=== PATIENT | male | born 1970 | race Caucasian/White ===

== ENCOUNTER 2017-03-20 20:50 | Inpatient (IN) | payer OTHER ==
[~2017-03-20 20:50] MED LIST: THIAMINE 100 MG TAB PO SCH
[2017-03-20] MEDS ORDERED: LORazepam 2 MG/ML SYRINGE IV STA (21:10)
[2017-03-20] MEDS ORDERED: SODIUM CHLORIDE 0.9% 2,000 ML IV ONE (21:10)
--- NOTE | 2017-03-20 21:14 | ED ---
General Adult HPI - General Chief complaint: Chest Pain Stated complaint: chest pain Time Seen by Provider: 03/20/17 21:02 Source: patient, EMS, RN notes reviewed Mode of arrival: EMS - History of Present Illness Initial comments: 46-year-old male presents for evaluation of chest pain and shortness of breath. Patient has had shortness of breath difficulty breathing throughout the day today. He also reports some right sided back pain. Patient has past medical history of hypertension, significant anxiety preventing him from leaving the most days, and alcohol abuse. He does report that over the past 3 nights he has had one fifth of alcohol each night. Patient believes that much of his symptoms are related to anxiety. Chest pain did not develop until while he was in the ambulance en route to the hospital. This was sharp in nature, lasting only seconds, she was nonradiating. There is no nausea or vomiting. He denies abdominal pain. Denies any shooting pain into his lower howard region. Back pain is nontraumatic, slowly worsening over the past several days. No specific injury noted. No fever or chills. Patient is tremulous. Heart rate and blood pressure elevated on initial evaluation. - Related Data Home Medications Medication Instructions Recorded Confirmed Atenolol 25 mg PO DAILY 03/20/17 03/20/17 Esomeprazole Magnesium [NexIUM] 20 mg PO DAILY 03/20/17 03/20/17 Allergies Allergy/AdvReac Type Severity Reaction Status Date / Time No Known Allergies Allergy Verified 03/20/17 21:35 Review of Systems ROS Statement: Those systems with pertinent positive or pertinent negative responses have been documented in the HPI. ROS Other: All systems not noted in ROS Statement are negative. Past Medical History Past Medical History: GERD/Reflux, Hypertension History of Any Multi-Drug Resistant Organisms: None Reported Past Surgical History: Hernia Repair Past Psychological History: Anxiety, Depression Smoking Status: Current every day smoker Past Alcohol Use History: Daily, Occasional Past Drug Use History: Marijuana General Exam General appearance: alert, in distress Head exam: Present: atraumatic, normocephalic Eye exam: Present: normal appearance, PERRL ENT exam: Present: normal exam, mucous membranes dry Neck exam: Present: normal inspection. Absent: tenderness, meningismus Respiratory exam: Present: normal lung sounds bilaterally, respiratory distress. Absent: wheezes, rales Cardiovascular Exam: Present: normal rhythm, tachycardia GI/Abdominal exam: Present: soft. Absent: distended, tenderness Extremities exam: Present: normal inspection, full ROM, normal capillary refill. Absent: pedal edema, calf tenderness Back exam: Present: normal inspection, full ROM Neurological exam: Present: alert, oriented X3, CN II-XII intact. Absent: motor sensory deficit Psychiatric exam: Present: normal affect, normal mood Skin exam: Present: warm, dry, intact. Absent: cyanosis, diaphoretic Course Vital Signs 03/20/17 03/20/17 03/20/17 20:50 21:20 21:35 Temperature 97.9 F Pulse Rate 121 H 114 H Pulse Rate [ 110 H [employer] ] Respiratory 16 20 Rate Blood Pressure 176/113 165/117 O2 Sat by Pulse 96 97 Oximetry 03/20/17 03/20/17 22:06 23:38 Temperature 98.4 F Pulse Rate 105 H 98 Pulse Rate [ [employer] ] Respiratory 18 18 Rate Blood Pressure 168/100 155/97 O2 Sat by Pulse 95 98 Oximetry - Reevaluation(s) Reevaluation #1: 03/21/17 00:04 Patient's heart rate improves with IV hydration. EKG Findings - EKG Comments: EKG Findings:: EKG shows sinus tachycardia, ventricular rate 110, WA interval 144, QRS duration 489, no ST segment elevation or depression Medical Decision Making - Medical Decision Making 46-year-old male presenting with shortness of breath and sharp anterior chest pain. Patient's lungs are clear, he is tachycardic and mildly hypoxic. There is mild respiratory distress. Patient does appear tremulous, does admit to drinking alcohol heavily over the past 3 nights. Patient is given Ativan, IV fluids, laboratory studies reveal elevated d-dimer, CT angiography is obtained. This is positive for filling defect consistent with pulmonary embolism per patient is started on heparin. Additional lab values include magnesium of 1.1, this is replaced in the emergency department. Patient receives IV hydration, magnesium replacement, heparin drip. Chest x-ray shows no acute findings. Diagnosis: Primary embolism, hypomagnesemia, concern for alcohol withdrawal - Lab Data Result diagrams: 03/20/17 21:00 03/20/17 21:00 Lab Results 03/20/17 03/20/17 03/20/17 Range/Units 21:00 21:00 21:00 WBC 4.7 (3.8-10.6) k/uL RBC 4.97 (4.30-5.90) m/uL Hgb 18.2 H (13.0-17.5) gm/dL Hct 51.2 (39.0-53.0) % MCV 103.0 H (80.0-100.0) fL MCH 36.6 H (25.0-35.0) pg MCHC 35.6 (31.0-37.0) g/dL RDW 13.5 (11.5-15.5) % Plt Count 129 L (150-450) k/uL Neutrophils % 64 % Lymphocytes % 24 % Monocytes % 5 % Eosinophils % 4 % Basophils % 1 % Neutrophils # 3.0 (1.3-7.7) k/uL Lymphocytes # 1.2 (1.0-4.8) k/uL Monocytes # 0.2 (0-1.0) k/uL Eosinophils # 0.2 (0-0.7) k/uL Basophils # 0.0 (0-0.2) k/uL Macrocytosis Slight PT (9.0-12.0) sec INR (<1.2) APTT (22.0-30.0) sec D-Dimer (<0.60) mg/L FEU Sodium 140 (137-145) mmol/L Potassium 3.6 (3.5-5.1) mmol/L Chloride 104 (98-107) mmol/L Carbon Dioxide 19 L (22-30) mmol/L Anion Gap 17 mmol/L BUN 7 L (9-20) mg/dL Creatinine 0.80 (0.66-1.25) mg/dL Est GFR (MDRD) Af Amer >60 (>60 ml/min/1.73 sqM) Est GFR (MDRD) Non-Af >60 (>60 ml/min/1.73 sqM) Glucose 107 H (74-99) mg/dL Calcium 9.7 (8.4-10.2) mg/dL Magnesium 1.1 L (1.6-2.3) mg/dL Total Bilirubin 1.2 (0.2-1.3) mg/dL AST 79 H (17-59) U/L ALT 86 H (21-72) U/L Alkaline Phosphatase 108 (38-126) U/L Total Creatine Kinase 335 H (55-170) U/L CK-MB (CK-2) 1.5 (0.0-2.4) ng/mL CK-MB (CK-2) Rel Index 0.4 Troponin I <0.012 (0.000-0.034) ng/mL NT-Pro-B Natriuret Pep pg/mL Total Protein 8.0 (6.3-8.2) g/dL Albumin 4.5 (3.5-5.0) g/dL Lipase 179 (23-300) U/L Serum Alcohol 21 mg/dL 03/20/17 03/20/17 Range/Units 21:00 21:00 WBC (3.8-10.6) k/uL RBC (4.30-5.90) m/uL Hgb (13.0-17.5) gm/dL Hct (39.0-53.0) % MCV (80.0-100.0) fL MCH (25.0-35.0) pg MCHC (31.0-37.0) g/dL RDW (11.5-15.5) % Plt Count (150-450) k/uL Neutrophils % % Lymphocytes % % Monocytes % % Eosinophils % % Basophils % % Neutrophils # (1.3-7.7) k/uL Lymphocytes # (1.0-4.8) k/uL Monocytes # (0-1.0) k/uL Eosinophils # (0-0.7) k/uL Basophils # (0-0.2) k/uL Macrocytosis PT 12.0 (9.0-12.0) sec INR 1.2 H (<1.2) APTT 24.9 (22.0-30.0) sec D-Dimer 0.66 H (<0.60) mg/L FEU Sodium (137-145) mmol/L Potassium (3.5-5.1) mmol/L Chloride (98-107) mmol/L Carbon Dioxide (22-30) mmol/L Anion Gap mmol/L BUN (9-20) mg/dL Creatinine (0.66-1.25) mg/dL Est GFR (MDRD) Af Amer (>60 ml/min/1.73 sqM) Est GFR (MDRD) Non-Af (>60 ml/min/1.73 sqM) Glucose (74-99) mg/dL Calcium (8.4-10.2) mg/dL Magnesium (1.6-2.3) mg/dL Total Bilirubin (0.2-1.3) mg/dL AST (17-59) U/L ALT (21-72) U/L Alkaline Phosphatase (38-126) U/L Total Creatine Kinase (55-170) U/L CK-MB (CK-2) (0.0-2.4) ng/mL CK-MB (CK-2) Rel Index Troponin I (0.000-0.034) ng/mL NT-Pro-B Natriuret Pep 25 pg/mL Total Protein (6.3-8.2) g/dL Albumin (3.5-5.0) g/dL Lipase (23-300) U/L Serum Alcohol mg/dL Critical Care Time Critical Care Time: Yes Total Critical Care Time: 35 Disposition Clinical Impression: Pulmonary embolism, Hypomagnesemia, Alcohol withdrawal Disposition: ADMITTED IP TO THIS [facility] Condition: Stable Referrals: None,Stated [REFERRING] - 1-2 days Decision to Admit Reason: Admit from EC Decision Date: 03/21/17 Decision Time: 23:30
[2017-03-20] MEDS: SODIUM CHLORIDE 0.9% 1,000 ML IV SCH (21:18)
[2017-03-20 21:22] LABS: Basophils % (A) 1 %; CH 38.1; CHCM 37.1; Eosinophils # (A) 0.2 k/uL (0-0.7); Eosinophils % (A) 4 %; HCT 51.2 % (39.0-53.0); HDW 2.68; HGB 18.2 gm/dL (13.0-17.5); Luc % (Auto) 2; Lymphocytes # (A) 1.2 k/uL (1.0-4.8); Lymphocytes % (A) 24 %; MCH 36.6 pg (25.0-35.0); MCHC 35.6 g/dL (31.0-37.0); Macrocytosis Slight; Mean Platelet Volume 8.8; Monocytes # (A) 0.2 k/uL (0-1.0); Monocytes % (A) 5 %; Neutrophils % (A) 64 %; RBC 4.97 m/uL (4.30-5.90); RDW 13.5 % (11.5-15.5); WBC 4.7 k/uL (3.8-10.6)
--- NOTE | 2017-03-20 21:32 | XR ---
EXAMINATION TYPE: XR chest 2V DATE OF EXAM: 03/20/2017 COMPARISON: January 25, 2011 HISTORY: Chest pain TECHNIQUE: Frontal and lateral views of the chest are obtained. FINDINGS: There is no focal air space opacity, pleural effusion, or pneumothorax seen. The cardiac silhouette size is within normal limits. The osseous structures are intact. IMPRESSION: No acute cardiopulmonary process.
[2017-03-20 21:35] LABS: ALT 86 U/L (21-72); AST 79 U/L (17-59); Alcohol 21 mg/dL; Alkaline Phosphatase 108 U/L (38-126); Anion Gap 17 mmol/L; Blood Urea Nitrogen 7 mg/dL (9-20); Calcium 9.7 mg/dL (8.4-10.2); Carbon Dioxide 19 mmol/L (22-30); Chloride 104 mmol/L (98-107); Glucose 107 mg/dL (74-99); Magnesium 1.1 mg/dL (1.6-2.3); Non-African American GFR(MDRD) >60 (>60 ml/min/1.73 sqM); Potassium 3.6 mmol/L (3.5-5.1); Sodium 140 mmol/L (137-145); Total Bilirubin 1.2 mg/dL (0.2-1.3)
[2017-03-20 21:41] LABS: Creatine Kinase 335 U/L (55-170)
[2017-03-20] MEDS ORDERED: ASPIRIN 325 MG TAB PO STA (21:53)
[2017-03-20 21:54] LABS: Creatine Kinase MB 1.5 ng/mL (0.0-2.4); Troponin I <0.012 ng/mL (0.000-0.034)
[2017-03-20] MEDS ORDERED: LORazepam 2 MG/ML SYRINGE IV PRN ×3 (21:54)
[2017-03-20] MEDS ORDERED: THIAMINE 100 MG/ML 2 ML VIAL IM STA (21:54)
[2017-03-20 21:59] LABS: INR 1.2 (<1.2); Partial Thromboplastin Time 24.9 sec (22.0-30.0)
[2017-03-20] MEDS ORDERED: ATENOLOL 25 MG TAB PO STA (22:19)
[2017-03-20] MEDS ORDERED: RX INFO: IV CONTRAST WAS GIVEN 1 EACH MISC MISCELLANE PRN (22:24)
[2017-03-20] MEDS ORDERED: SODIUM CHLORIDE 0.9% 1,000 ML IV ONE (22:25)
[2017-03-20] MEDS: MAGNESIUM SULFATE-D5W PMX 1 GM in DEXTROSE/WATER 1 100ML.BAG IVPB SCH ×2 (22:26→23:57)
[2017-03-20] MEDS ORDERED: HEPARIN SODIUM,PORCINE 10,000 UNIT/ML 1 ML VIAL IV ONE (23:28)
[2017-03-20] MEDS ORDERED: HEPARIN SODIUM,PORCINE/D5W PMX 25,000 UNIT in DEXTROSE/WATER 1 500ML.BAG IV SCH (23:28)
[2017-03-20] MEDS ORDERED: HEPARIN SODIUM,PORCINE 5,000 UNIT/ML 1 ML VIAL IV PRN (23:28)
--- NOTE | 2017-03-20 23:30 | CT ---
EXAM: CT Angiography Chest With Intravenous Contrast CLINICAL HISTORY: Reason: Pain TECHNIQUE: Axial computed tomographic angiography images of the chest with intravenous contrast using pulmonary embolism protocol. CTDI is 83.60 mGy and DLP is 471.00 mGy-cm. This CT exam was performed using one or more of the following dose reduction techniques: automated exposure control, adjustment of the mA and/or kV according to patient size, and/or use of iterative reconstruction technique. MIP reconstructed images were created and reviewed. COMPARISON: No relevant prior studies available. FINDINGS: Pulmonary arteries: Suboptimal opacification of the pulmonary arteries is noted, which limits evaluation for pulmonary embolism. Within this limitation, there is a suspected filling defect within a subsegmental artery supplying the right upper lobe (series 4, image 56). Finding may represent a pulmonary embolism. Aorta: No acute findings. No thoracic aortic aneurysm. Lungs: Mild dependent atelectasis is seen involving both lower lobes. No mass. Pleural space: Unremarkable. No significant effusion. No pneumothorax. Heart: Mild atherosclerotic vascular calcifications are seen involving the coronary arteries. No significant pericardial effusion. No evidence of RV dysfunction. Bones/joints: No acute fracture. No dislocation. Soft tissues: Unremarkable. Lymph nodes: Unremarkable. No enlarged lymph nodes. Liver: Hepatic steatosis is suggested. IMPRESSION: Suboptimal opacification of the pulmonary arterial system. Within this limitation, there is a suspected filling defect within a subsegmental artery supplying the right upper lobe. Finding may represent a pulmonary embolism. Clinical correlation recommended. If there is further clinical concern, a short term interval follow up CTA of the chest may be obtained. Nuclear medicine VQ scan may also be obtained. [employer] 03/20/17 23:29 Call Doctor Regarding Pulmonary Embolism, called Dr. Vega on 03/20 23:29 (-04:00)
[2017-03-21] MEDS ORDERED: ACETAMINOPHEN TAB 325 MG TAB PO PRN (00:01)
[2017-03-21] MEDS ORDERED: MORPHINE SULFATE 4 MG/ML SYRINGE IV PRN (00:01)
[2017-03-21] MEDS ORDERED: ONDANSETRON 4 MG/2 ML VIAL IVP PRN (00:01)
[2017-03-21] MEDS ORDERED: NALOXONE 0.4 MG/ML 1 ML VIAL IV PRN (00:01)
[2017-03-21 00:16] LABS: Appearance,Urine Clear (Clear); Bilirubin,Urine Negative (Negative); Glucose,Urine (UA) Negative (Negative); Ketones,Urine 2+ (Negative); Leukocyte Esterase,Urine Negative (Negative); Nitrite,Urine Negative (Negative); Protein,Urine Trace (Negative); Specific Gravity,Urine 1.027 (1.001-1.035); UA Billing (MACRO vs. MICRO) CHEM; Urobilinogen,Urine <2.0 mg/dL (<2.0)
[2017-03-21 06:12] LABS: INR 1.2 (<1.2); Prothrombin Time 12.1 sec (9.0-12.0)
[2017-03-21 06:13] LABS: Basophils % (A) 0 %; CH 36.3; CHCM 35.2; Eosinophils # (A) 0.2 k/uL (0-0.7); Eosinophils % (A) 3 %; HDW 2.66; HGB 16.2 gm/dL (13.0-17.5); Luc # (Auto) 0.11; Luc % (Auto) 2; Lymphocytes # (A) 1.8 k/uL (1.0-4.8); Lymphocytes % (A) 32 %; MCH 36.6 pg (25.0-35.0); MCHC 35.2 g/dL (31.0-37.0); MCV 103.7 fL (80.0-100.0); Macrocytosis Slight; Mean Platelet Volume 8.5; Monocytes # (A) 0.3 k/uL (0-1.0); Monocytes % (A) 5 %; Neutrophils # (A) 3.3 k/uL (1.3-7.7); Neutrophils % (A) 58 %; RBC 4.44 m/uL (4.30-5.90); RDW 13.1 % (11.5-15.5); WBC 5.8 k/uL (3.8-10.6)
[2017-03-21] MEDS: SODIUM CHLORIDE 0.9% 1,000 ML IV SCH ×3 (06:28→23:13)
[2017-03-21 06:32] LABS: Partial Thromboplastin Time 126.7 sec (22.0-30.0)
[2017-03-21 09:30] LABS: ALT 65 U/L (21-72); AST 68 U/L (17-59); Alkaline Phosphatase 86 U/L (38-126); Anion Gap 7 mmol/L; Blood Urea Nitrogen 5 mg/dL (9-20); Carbon Dioxide 24 mmol/L (22-30); Chloride 108 mmol/L (98-107); Glucose 89 mg/dL (74-99); Non-African American GFR(MDRD) >60 (>60 ml/min/1.73 sqM); Potassium 3.5 mmol/L (3.5-5.1); Sodium 139 mmol/L (137-145); Total Bilirubin 1.1 mg/dL (0.2-1.3); Total Protein 6.7 g/dL (6.3-8.2)
--- NOTE | 2017-03-21 10:39 | NM ---
EXAMINATION TYPE: NM pul vent and perfuse DATE OF EXAM: 03/21/2017 COMPARISON: 03/20/2017 HISTORY: Chest pain TECHNIQUE: Utilizing inhalation of 65.6 mCi Tc 99m DTPA aerosol and intravenous injection of 5.73 mC i of Tc 99m MAA, ventilation and perfusion images are acquired post injection in multiple projections . FINDINGS: Normal radiotracer distribution is noted in the lungs. There is no evidence of mismatched defects. IMPRESSION: Low probability for pulmonary embolism based on VQ scan. Correlate with CTA report and clinically whi ch suggest upper lobe pulmonary embolism. No mismatch defects are seen.
[2017-03-21] MEDS: ATENOLOL 25 MG TAB PO SCH (10:43)
--- NOTE | 2017-03-21 11:23 | P.CRDCN ---
History of Present Illness Consult date: 03/21/17 Reason for Consult (text): Chest pain with elevated d-dimer History of present illness: 46-year-old gentleman with history of EtOH abuse presented to Hospital complaining of mild shortness of breath not feeling well and chest pain. His d- dimer was elevated underwent a computed tomography scan of the chest that was indeterminate for pulmonary embolism and went on to have a VQ scan that came back as low probability. At the time of my evaluation he appears comfortable at rest and is free of symptoms. EKG does not reveal ischemic changes first set of troponin is negative. His chest discomfort is sharp atypical nonpleuritic came on at rest without clear-cut relieving or exacerbating factors. It was mild intensity. Patient also had mild shortness of breath. There is no history of paroxysmal nocturnal dyspnea and orthopnea there is no history of leg edema. There is no history of focal neurological deficits. Review of Systems Constitutional: Denies chills. Denies fever. Eyes: Denies blurred vision. Denies pain. Ears, nose, mouth and throat: Denies headache. Denies sore throat. Cardiovascular: has chest pain. Denies shortness of breath. Respiratory: Denies cough. Gastrointestinal: Denies abdominal pain. Denies diarrhea. Denies nausea. Denies vomiting. Musculoskeletal: Denies myalgias. Integumentary: Denies pruritus. Denies rash. Neurological: Denies numbness. Denies weakness. Psychiatric: Denies anxiety. Denies depression. Endocrine: Denies fatigue. Denies weight change. Genitourinary: Denies burning, hematuria, frequency of urination. Hematological: No anemia or excess bleeding. Past Medical History Past Medical History: GERD/Reflux, Hypertension Additional Past Medical History / Comment(s): pancreatitis 5 years ago. History of Any Multi-Drug Resistant Organisms: None Reported Past Surgical History: Hernia Repair Past Anesthesia/Blood Transfusion Reactions: No Reported Reaction Past Psychological History: Anxiety, Depression Smoking Status: Current every day smoker Past Alcohol Use History: Abuse - Past Family History Father Family Medical History: Hypertension, Myocardial Infarction ([place]) Medications and Allergies Home Medications Medication Instructions Recorded Confirmed Type Atenolol 25 mg PO DAILY 03/20/17 03/20/17 History Esomeprazole Magnesium [NexIUM] 20 mg PO DAILY 03/20/17 03/20/17 History Allergies Allergy/AdvReac Type Severity Reaction Status Date / Time No Known Allergies Allergy Verified 03/20/17 21:35 Physical Exam Vitals: Vital Signs Temp Pulse Pulse Resp BP BP Pulse Ox 03/21/17 08:44 96 03/21/17 08:00 77 18 03/21/17 07:50 98.3 F 77 18 180/110 95 03/21/17 04:00 97.4 F L 98 18 164/89 97 03/21/17 03:31 157/98 03/21/17 01:44 155/102 03/21/17 01:19 166/98 03/21/17 00:50 97.4 F L 98 18 175/121 99 03/21/17 00:05 99.4 F 100 18 154/99 95 03/20/17 23:38 98 18 155/97 98 03/20/17 22:06 98.4 F 105 H 18 168/100 95 03/20/17 21:35 110 H 03/20/17 21:20 114 H 20 165/117 97 03/20/17 20:50 97.9 F 121 H 16 176/113 96 Intake and Output 03/20/17 03/21/17 03/21/17 22:59 06:59 14:59 Intake Total 1546.578 300 Output Total 500 Balance 1046.578 300 Intake: IV 1300 Heparin Sodium,Porcine/ 300 D5w Pmx 25,000 unit In Dextrose/Water 1 500ml. bag @ 18 UNITS/KG/HR 37. 55 mls/hr IV .[id number] [facility] Rx#:[id number] Magnesium Sulfate-D5w Pmx 200 1 gm In Dextrose/Water 1 100ml.bag @ 100 mls/hr IVPB Q1H [facility] Rx#: [id number] Sodium Chloride 0.9% 1, 800 000 ml @ 100 mls/hr IV . Q10H [facility] Rx#:[id number] Intake, IV Titration 246.578 0 Amount Heparin Sodium,Porcine/ 246.578 0 D5w Pmx 25,000 unit In Dextrose/Water 1 500ml. bag @ 18 UNITS/KG/HR 37. 55 mls/hr IV .[id number] [facility] Rx#:[id number] Oral 300 Output: Urine 500 Other: Voiding Method Urinal Weight 104.326 kg 108.1 kg General: The patient is awake and alert, in no distress, and does not appear acutely ill. Skin: Skin is warm and dry and no rashes or lesions are noted. Eye: Pupils are equal, round and reactive to light, extra-ocular movements are intact; there is normal conjunctiva bilaterally. Ears, nose, mouth and throat: There are moist mucous membranes and no oral lesions. Neck: The neck is supple, there is no tenderness or JVD. Cardiovascular: There is a regular rate and rhythm. No murmur, rub or gallop is appreciated. Respiratory: Lungs are clear to auscultation, respirations are non-labored, breath sounds are equal. Gastrointestinal: Soft, non-distended, non-tender abdomen without masses or organomegaly noted. There is no rebound or guarding present. Bowel sounds are unremarkable. Back: There is no tenderness to palpation in the midline. There is no obvious deformity. Musculoskeletal: Normal ROM, no tenderness, There is no pedal edema. There is no calf tenderness or swelling. Extremities: No edema. Vascular: Femoral pulse is normal. Posterior tibial pulses are normal .Dorsalis pedis is palpable. Neurological: CN II-XII intact. There are no obvious motor or sensory deficits. Speech is normal. Psychiatric: Cooperative, appropriate mood & affect, normal judgment. Results 03/21/17 05:38 03/21/17 05:30 Cardiac Enzymes 03/20/17 03/20/17 03/21/17 Range/Units 21:00 21:00 05:30 AST 79 H 68 H (17-59) U/L CK-MB (CK-2) 1.5 (0.0-2.4) ng/mL Troponin I <0.012 (0.000-0.034) ng/mL Coagulation 03/20/17 03/21/17 Range/Units 21:00 05:38 PT 12.0 12.1 H (9.0-12.0) sec APTT 24.9 126.7 H* (22.0-30.0) sec CBC 03/20/17 03/21/17 Range/Units 21:00 05:38 WBC 4.7 5.8 (3.8-10.6) k/uL RBC 4.97 4.44 (4.30-5.90) m/uL Hgb 18.2 H 16.2 (13.0-17.5) gm/dL Hct 51.2 46.0 (39.0-53.0) % Plt Count 129 L 113 L (150-450) k/uL Comprehensive Metabolic Panel 03/20/17 03/21/17 Range/Units 21:00 05:30 Sodium 140 139 (137-145) mmol/L Potassium 3.6 3.5 (3.5-5.1) mmol/L Chloride 104 108 H (98-107) mmol/L Carbon Dioxide 19 L 24 (22-30) mmol/L BUN 7 L 5 L (9-20) mg/dL Creatinine 0.80 0.77 (0.66-1.25) mg/dL Glucose 107 H 89 (74-99) mg/dL Calcium 9.7 8.0 L (8.4-10.2) mg/dL AST 79 H 68 H (17-59) U/L ALT 86 H 65 (21-72) U/L Alkaline Phosphatase 108 86 (38-126) U/L Total Protein 8.0 6.7 (6.3-8.2) g/dL Albumin 4.5 3.5 (3.5-5.0) g/dL Current Medications Generic Name Dose Route Start Last Admin Trade Name Freq PRN Reason Stop Dose Admin Acetaminophen 650 mg 03/21/17 00:01 Tylenol Tab PO Q6HR PRN Mild Pain or Fever > 100.5 Atenolol 25 mg 03/21/17 09:00 03/21/17 10:43 Tenormin PO 25 mg DAILY [facility] Administration Sodium Chloride 1,000 mls @ 100 mls/hr 03/20/17 21:15 03/21/17 06:28 Saline 0.9% IV 100 mls/hr .Q10H [facility] Administration Lorazepam 1 mg 03/20/17 21:54 03/21/17 01:05 Ativan IV 1 mg Q2HR PRN Administration CIWA 8 or 9 Lorazepam 1 mg 03/20/17 21:54 Ativan IV Q1HR PRN CIWA 10 to 15 Lorazepam 2 mg 03/20/17 21:54 Ativan IV 03/22/17 21:54 Q10M PRN CIWA 16 or higher Miscellaneous Information 1 each 03/20/17 22:24 Rx Info: Iv Contrast Was Given MISCELLANE 03/22/17 22:24 DAILY PRN Per Protocol Morphine Sulfate 4 mg 03/21/17 00:01 Morphine Sulfate (Inj) IV Q4HR PRN Severe Pain Naloxone HCl 0.2 mg 03/21/17 00:01 Narcan IV Q2M PRN Opioid Reversal Ondansetron HCl 4 mg 03/21/17 00:01 Zofran IVP Q8HR PRN Nausea And Vomiting Thiamine HCl 100 mg 03/21/17 12:00 Vitamin B-1 PO BID@1200,1700 [facility] Intake and Output 03/20/17 03/21/17 03/21/17 22:59 06:59 14:59 Intake Total 1546.578 300 Output Total 500 Balance 1046.578 300 Intake: IV 1300 Heparin Sodium,Porcine/ 300 D5w Pmx 25,000 unit In Dextrose/Water 1 500ml. bag @ 18 UNITS/KG/HR 37. 55 mls/hr IV .[id number] [facility] Rx#:[id number] Magnesium Sulfate-D5w Pmx 200 1 gm In Dextrose/Water 1 100ml.bag @ 100 mls/hr IVPB Q1H [facility] Rx#: [id number] Sodium Chloride 0.9% 1, 800 000 ml @ 100 mls/hr IV . Q10H [facility] Rx#:[id number] Intake, IV Titration 246.578 0 Amount Heparin Sodium,Porcine/ 246.578 0 D5w Pmx 25,000 unit In Dextrose/Water 1 500ml. bag @ 18 UNITS/KG/HR 37. 55 mls/hr IV .[id number] [facility] Rx#:[id number] Oral 300 Output: Urine 500 Other: Voiding Method Urinal Weight 104.326 kg 108.1 kg 03/21/17 05:38 03/21/17 05:30 EKG Interpretations (text) Normal sinus rhythm and within normal limits Assessment and Plan Plan: Chest pain Patient chest discomfort is atypical. So far the workup is benign and unremarkable. There is no pulmonary embolism. EKG is normal. I will obtain another set of troponin. If this is negative patient will undergo a dobutamine echo and discharged home if that's unremarkable. Patient has history of EtOH abuse and advised him to quit drinking.
[2017-03-21 11:36] VITALS: BMI 31.4
[2017-03-21] MEDS ORDERED: DOBUTamine DRIP for NUC MED 500 MG in DEXTROSE/WATER 1 250ML.BAG IV ONE (12:04)
[2017-03-21] MEDS: THIAMINE 100 MG TAB PO SCH ×2 (13:06→17:44)
[2017-03-21] MEDS: PANTOPRAZOLE 40 MG TABLET PO SCH (13:06)
[2017-03-21] MEDS: BUDESONIDE 1 MG/2 ML NEBU INHALATION SCH ×2 (15:07→19:39)
[2017-03-21] MEDS: IPRATROPIUM-ALBUTEROL 3 ML NEB INHALATION SCH ×4 (15:07→23:33)
--- NOTE | 2017-03-21 15:30 | P.CNPUL ---
History of Present Illness Consult date: 03/21/17 Requesting physician: Alireza Marti Reason for consult: chest pain Chief complaint: Chest pain, shortness of breath History of present illness: This is a very pleasant 46-year-old gentleman who follows with Dr. Massey is his primary care physician. He has a history of hypertension, chronic back pain , anxiety/depression, chronic and ongoing tobacco dependence, daily alcohol use , pancreatitis, history of marijuana use. He presented to the emergency room yesterday with complaints of midsternal chest pain and shortness of breath. He also had tingling and numbness of his bilateral hands. He was diaphoretic. He was tachycardic. EKG revealed normal sinus rhythm with no acute ST or T-wave abnormalities. Troponins were negative 2. Chest x-ray revealed no acute pulmonary process. A d-dimer was 0.66. CT angiogram revealed suboptimal bolus and pulmonary embolism could not be totally excluded. A heparin drip was initiated. A VQ scan was performed today which revealed low probability of pulmonary embolism. The patient denies any recent prolonged travel, no recent surgery, no history of PE/DVT, no hemoptysis, no family history of PE/DVT, no cancer. He is seen today in consultation on the selective care unit. He is currently awake and alert in no acute distress. He denies any chest pain, palpitations lightheadedness or dizziness. No shortness of breath, cough or congestion. He is maintaining good O2 saturations in the 90s on room air. He' s been hypertensive. No episodes of hypotension. Review of Systems 14 point review of system was conducted. All negative other than as mentioned in HPI. Past Medical History Past Medical History: GERD/Reflux, Hypertension Additional Past Medical History / Comment(s): pancreatitis 5 years ago. History of Any Multi-Drug Resistant Organisms: None Reported Past Surgical History: Hernia Repair Past Anesthesia/Blood Transfusion Reactions: No Reported Reaction Past Psychological History: Anxiety, Depression Smoking Status: Current every day smoker Past Alcohol Use History: Abuse - Past Family History Father Family Medical History: Hypertension, Myocardial Infarction ([place]) Medications and Allergies Home Medications Medication Instructions Recorded Confirmed Type Atenolol 25 mg PO DAILY 03/20/17 03/20/17 History Esomeprazole Magnesium [NexIUM] 20 mg PO DAILY 03/20/17 03/20/17 History Allergies Allergy/AdvReac Type Severity Reaction Status Date / Time No Known Allergies Allergy Verified 03/20/17 21:35 Physical Exam Vitals: Vital Signs Temp Pulse Pulse Resp BP BP Pulse Ox 03/21/17 12:45 74 18 175/115 93 L 03/21/17 12:00 74 18 03/21/17 08:44 96 03/21/17 08:00 77 18 03/21/17 07:50 98.3 F 77 18 180/110 95 03/21/17 04:00 97.4 F L 98 18 164/89 97 03/21/17 03:31 157/98 03/21/17 01:44 155/102 03/21/17 01:19 166/98 03/21/17 00:50 97.4 F L 98 18 175/121 99 03/21/17 00:05 99.4 F 100 18 154/99 95 03/20/17 23:38 98 18 155/97 98 03/20/17 22:06 98.4 F 105 H 18 168/100 95 03/20/17 21:35 110 H 03/20/17 21:20 114 H 20 165/117 97 03/20/17 20:50 97.9 F 121 H 16 176/113 96 Intake and Output 03/21/17 03/21/17 03/21/17 06:59 14:59 22:59 Intake Total 1546.578 540 Output Total 500 Balance 1046.578 540 Intake: IV 1300 Heparin Sodium,Porcine/ 300 D5w Pmx 25,000 unit In Dextrose/Water 1 500ml. bag @ 18 UNITS/KG/HR 37. 55 mls/hr IV .[id number] LUIS ANTONIO Rx#:[id number] Magnesium Sulfate-D5w Pmx 200 1 gm In Dextrose/Water 1 100ml.bag @ 100 mls/hr IVPB Q1H LUIS ANTONIO Rx#: [id number] Sodium Chloride 0.9% 1, 800 000 ml @ 100 mls/hr IV . Q10H LUIS ANTONIO Rx#:[id number] Intake, IV Titration 246.578 0 Amount Heparin Sodium,Porcine/ 246.578 0 D5w Pmx 25,000 unit In Dextrose/Water 1 500ml. bag @ 18 UNITS/KG/HR 37. 55 mls/hr IV .[id number] LUIS ANTONIO Rx#:[id number] Oral 540 Output: Urine 500 Other: Voiding Method Toilet # Voids 3 Weight 108.1 kg 108.1 kg Patient Weight 03/22/17 06:59 Weight 108.1 kg GENERAL EXAM: Alert, active, comfortable in no apparent distress. HEAD: Normocephalic. EYES: Normal reaction of pupils, equal size. NOSE: Clear with pink turbinates. THROAT: No erythema or exudates. NECK: No masses, no JVD. CHEST: No chest wall deformity. LUNGS: Equal air entry with no crackles, wheeze, rhonchi or dullness. CVS: S1 and S2 normal with no audible murmurs, regular rhythm. ABDOMEN: No hepatosplenomegaly, normal bowel sounds, no guarding or rigidity. SPINE: No scoliosis or deformity SKIN: No rashes CENTRAL NERVOUS SYSTEM: No focal deficits, tone is normal in all 4 extremities. Extremities: There is no significant peripheral edema. No clubbing, no cyanosis. Peripheral pulses are intact. Results - Laboratory Findings CBC and BMP: 03/21/17 05:38 03/21/17 05:30 PT/INR, D-dimer PT 12.1 sec (9.0-12.0) H 03/21/17 05:38 INR 1.2 (<1.2) H 03/21/17 05:38 D-Dimer 0.66 mg/L FEU (<0.60) H 03/20/17 21:00 Abnormal lab findings: Abnormal Labs 03/20/17 03/20/17 03/20/17 21:00 21:00 21:00 Hgb 18.2 H MCV 103.0 H MCH 36.6 H Plt Count 129 L PT INR APTT D-Dimer Chloride Carbon Dioxide 19 L BUN 7 L Glucose 107 H Calcium Magnesium 1.1 L AST 79 H ALT 86 H Total Creatine Kinase 335 H Urine Protein Urine Ketones 03/20/17 03/21/17 03/21/17 21:00 00:02 05:30 Hgb MCV MCH Plt Count PT INR 1.2 H APTT D-Dimer 0.66 H Chloride 108 H Carbon Dioxide BUN 5 L Glucose Calcium 8.0 L Magnesium AST 68 H ALT Total Creatine Kinase Urine Protein Trace H Urine Ketones 2+ H 03/21/17 03/21/17 05:38 05:38 Hgb MCV 103.7 H MCH 36.6 H Plt Count 113 L PT 12.1 H INR 1.2 H APTT 126.7 H* D-Dimer Chloride Carbon Dioxide BUN Glucose Calcium Magnesium AST ALT Total Creatine Kinase Urine Protein Urine Ketones - Diagnostic Findings Chest x-ray: image reviewed CT scan - chest: image reviewed Assessment and Plan Plan: Impression: #1 Atypical chest pain, no evidence of acute coronary syndrome, inconclusive CT angiogram for pulmonary embolism, VQ scan reveals low probability for pulmonary embolism. #2 Dyspnea of unclear etiology, less likely to pulmonary embolism, less likely angina equivalent, suspect secondary to anxiety, could be an acute exacerbation of chronic obstructive pulmonary disease in a patient with continued ongoing tobacco dependence. #3 Chronic and ongoing tobacco dependence. #4 Daily alcohol use. #5 History of marijuana use. #6 Hypertension. #7 Gastroesophageal reflux disease. #8 History of pancreatitis. #9 Anxiety/depression. #10 Chronic back pain. Plan: The patient was seen and evaluated by Dr. Vaughn. His chest x-ray, CT angiogram , VQ scan and labs were all reviewed. Doubt pulmonary embolism but his results are inconclusive we'll continue with heparin. We will recommend initiating the patient on Xarelto for approximately 3 months. We will continue his treatment for suspected chronic obstructive pulmonary disease with bronchodilators, Pulmicort inhalations, IV Solu-Medrol. The patient is educated regarding the importance of complete smoking cessation. A NicoDerm patch has been applied. He would benefit from an outpatient workup including full pulmonary function testing to evaluate the severity of his suspected COPD and make recommendations for her maintenance medications. Cardiology is following as well and there is plans for stress testing tomorrow. Time with Patient: Greater than 30
[2017-03-21] MEDS: NICOTINE 21MG/24HR PATCH TRANSDERM SCH (15:44)
[2017-03-21] MEDS: amLODIPine 5 MG TAB PO SCH (15:45)
[2017-03-21] MEDS: methylPREDNISolone SOD SUCCI 40 MG/ML 1 ML VIAL IV SCH ×2 (15:45→23:13)
--- NOTE | 2017-03-21 19:17 | HP ---
HISTORY AND PHYSICAL DATE OF ADMISSION: 03/21/2017 PRESENTING COMPLAINT: Short of breath. HISTORY OF PRESENTING COMPLAINT: This is a 46-year-old patient of Dr. Massey who is a long-standing smoker. He has a history of some anxiety, depression, hypertension, GERD. He presented with one day of increasing shortness of breath; not much wheezing, but really could not catch his breath. He was feeling a bit weak, tired. Denies any fever. No obvious cough. He came in. CT scan in the ER showed a questionable PE. Patient also had some chest pressure; hence he was admitted. He was put on IV heparin. REVIEW OF SYSTEMS: CONSTITUTIONAL: Tired. HEENT: None. RESPIRATORY: As above. CARDIOVASCULAR: As above. GASTROINTESTINAL: Heartburn. GENITOURINARY: None. MUSCULOSKELETAL: None. DERMATOLOGIC: None. HEMATOLOGIC: None. LYMPHATIC: None. PSYCHIATRY: Some anxiety. NEUROLOGIC: None. PAST HISTORY: 1. GERD. 2. Hypertension. 3. Pancreatitis. 4. Anxiety. 5. Depression. PAST SURGICAL HISTORY: Hernia repair. 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 Does marijuana occasionally. Drinks at least 2 fifths a week. Has smoked a pack a day for close to 25 years ago. . FAMILY HISTORY: 1. Hypertension. 2. Myocardial infarction. HOME MEDICATIONS: 1. Nexium 40 mg daily. 2. Atenolol 25 mg daily. ALLERGIES: NONE. PHYSICAL EXAMINATION: On examination, temperature 98.3, pulse 77, respiration 18, blood pressure 180/110, pulse ox 95% on 2 L. GENERAL APPEARANCE: Well built; BMI 31.4. Lying in bed, tired-appearing. EYES: Pupils equal. Conjunctivae normal. HEENT: Oral cavity normal. NECK: JVD not raised. Mass not palpable. RESPIRATORY: Effort increased. LUNGS: Diminished breath sounds. Prolonged expiration. Mild wheezing. CARDIOVASCULAR: First and second sounds normal. No edema. ABDOMEN: Soft, non-tender. Liver and spleen not palpable. LYMPHATIC: No lymph node palpable in neck or axillae. PSYCHIATRY: Alert and oriented x3. Mood and affect anxious-appearing. NEUROLOGICAL: Pupils equal. Cranial nerves grossly intact. Power and sensation grossly intact. INVESTIGATIONS: White count 4.7, hemoglobin 18.2, platelets 129. Pro time 12.1. Potassium 3.6. AST 79, ALT 86. Serum alcohol 21. Chest x-ray shows nil acute. Chest CTA: There is a suspected filling defect within a subsegmental artery supplying the right upper lobe. May represent a pulmonary embolism. Patient did have a V/Q scan that showed low probability for PE. ASSESSMENT: 1. Acute chronic obstructive pulmonary disease exacerbation in a smoker. 2. Accelerated hypertension. 3. Chronic nicotine dependence. Patient is a smoker. 4. Anxiety and depression not otherwise specified. 5. Gastroesophageal reflux disease. 6. Obesity; BMI 31.4. PLAN: Will start the patient on nebulized bronchodilators, nebulized steroids, IV steroids. Cardiology is ordering a stress test. Will get a pulmonary opinion about the suggested PE, though I doubt this is causing his presentation, which appears to be mainly COPD. Care was discussed with the patient and his . Questions were answered. MMGUSTABOL / IJN: [id number] /
[2017-03-21] MEDS ORDERED: IPRATROPIUM-ALBUTEROL 3 ML NEB INHALATION PRN (23:33)
[2017-03-22 06:41] LABS: Basophils % (A) 0 %; CH 36.6; CHCM 34.7; Eosinophils % (A) 0 %; HDW 2.61; HGB 17.3 gm/dL (13.0-17.5); Luc # (Auto) 0.03; Luc % (Auto) 0; Lymphocytes # (A) 0.7 k/uL (1.0-4.8); Lymphocytes % (A) 9 %; MCH 37.3 pg (25.0-35.0); MCHC 35.2 g/dL (31.0-37.0); Macrocytosis Moderate; Monocytes # (A) 0.1 k/uL (0-1.0); Monocytes % (A) 1 %; Neutrophils # (A) 7.2 k/uL (1.3-7.7); Neutrophils % (A) 89 %; RBC 4.63 m/uL (4.30-5.90); RDW 13.2 % (11.5-15.5); WBC 8.1 k/uL (3.8-10.6); WBC (Perox) 7.94
[2017-03-22] MEDS: BUDESONIDE 1 MG/2 ML NEBU INHALATION SCH (08:29)
[2017-03-22] MEDS: IPRATROPIUM-ALBUTEROL 3 ML NEB INHALATION SCH ×2 (08:29→14:04)
[2017-03-22] MEDS ORDERED: DOBUTamine DRIP for NUC MED 500 MG in DEXTROSE/WATER 1 250ML.BAG IV ONE (09:30)
[2017-03-22] MEDS: amLODIPine 5 MG TAB PO SCH (10:29)
[2017-03-22] MEDS: PANTOPRAZOLE 40 MG TABLET PO SCH (10:29)
[2017-03-22] MEDS: ATENOLOL 25 MG TAB PO SCH (10:29)
[2017-03-22] MEDS: methylPREDNISolone SOD SUCCI 40 MG/ML 1 ML VIAL IV SCH (10:29)
[2017-03-22] MEDS: THIAMINE 100 MG TAB PO SCH (10:30)
[2017-03-22] MEDS: NICOTINE 21MG/24HR PATCH TRANSDERM SCH (10:30)
--- NOTE | 2017-03-22 10:39 | P.PN ---
Subjective Principal diagnosis: chest pain this is a 46-year-old gentleman with history of EtOH abuse who presented to the hospital with symptoms of atypical chest pain and mild associated shortness of breath. Initial d-dimer came back to the abnormal, patient underwent CTA of the chest and subsequently a VQ of the chest which came back low probability for pulmonary embolism. Troponins were negative 3. EKG showed a sinus tachycardia with no acute changes. Patient underwent a dobutamine echocardiographic study today, results are yet pending. Denies any further chest discomfort. Objective - Vital Signs Vital signs: Vital Signs Temp 97.6 F 03/22/17 07:45 Pulse 78 03/22/17 08:51 Resp 16 03/22/17 08:33 BP 145/91 03/22/17 07:45 Pulse Ox 95 03/22/17 07:45 Intake & Output 03/21/17 03/22/17 03/22/17 18:59 06:59 18:59 Intake Total 540 1600 Balance 540 1600 Weight 108.1 kg 107.4 kg 107.048 kg Intake: IV 1600 Sodium Chloride 0.9% 1, 1600 000 ml @ 100 mls/hr IV . Q10H LUIS ANTONIO Rx#:[id number] Intake, IV Titration 0 Amount Heparin Sodium,Porcine/ 0 D5w Pmx 25,000 unit In Dextrose/Water 1 500ml. bag @ 18 UNITS/KG/HR 37. 55 mls/hr IV .[id number] LUIS ANTONIO Rx#:[id number] Oral 540 Other: Voiding Method Toilet Toilet Toilet # Voids 3 3 - Exam PHYSICAL EXAMINATION: HEENT: [Head is atraumatic, normocephalic. Pupils equal, round. Neck is supple. There is no elevated jugular venous pressure.] HEART EXAMINATION: [Heart S1, S2 normal. No murmur or gallop heard.] CHEST EXAMINATION:[ Lungs are clear to auscultation and precussion. No chest wall tenderness is noted on palpation or with deep breathing.] ABDOMEN: [ Soft, nontender. Bowel sounds are heard. No organomegaly noted]. EXTREMITIES:[ 2+ peripheral pulses with no evidence of peripheral edema and no calf tenderness noted]. NEUROLOGIC [patient is awake, alert and oriented -3.] . - Labs CBC & Chem 7: 03/22/17 05:56 03/21/17 05:30 Labs: Abnormal Lab Results - Last 24 Hours (Table) 03/22/17 Range/Units 05:56 MCV 106.0 H (80.0-100.0) fL MCH 37.3 H (25.0-35.0) pg Plt Count 116 L (150-450) k/uL Lymphocytes # 0.7 L (1.0-4.8) k/uL Assessment and Plan (1) Atypical chest pain Status: Acute (2) SOB (shortness of breath) Status: Acute (3) Nicotine dependence Status: Acute (4) ETOH abuse Status: Acute (5) Marijuana smoker Status: Acute (6) HTN (hypertension) Status: Acute Plan: We will review the echocardiogram with Doppler study and dobutamine echo once the results are available.if negative, patient may be able to be discharged from cardiology's perspective. DNP note has been reviewed, I agree with a documented findings and plan of care. Patient was seen and examined.
--- NOTE | 2017-03-22 11:14 | P.PN ---
Subjective Principal diagnosis: Atypical chest pain and shortness of breath This is a very pleasant 46-year-old gentleman who follows with Dr. Massey is his primary care physician. He has a history of hypertension, chronic back pain , anxiety/depression, chronic and ongoing tobacco dependence, daily alcohol use , pancreatitis, history of marijuana use. He presented to the emergency room yesterday with complaints of midsternal chest pain and shortness of breath. He also had tingling and numbness of his bilateral hands. He was diaphoretic. He was tachycardic. EKG revealed normal sinus rhythm with no acute ST or T-wave abnormalities. Troponins were negative 2. Chest x-ray revealed no acute pulmonary process. A d-dimer was 0.66. CT angiogram revealed suboptimal bolus and pulmonary embolism could not be totally excluded. A heparin drip was initiated. A VQ scan was performed today which revealed low probability of pulmonary embolism. The patient denies any recent prolonged travel, no recent surgery, no history of PE/DVT, no hemoptysis, no family history of PE/DVT, no cancer. He is seen today in consultation on the selective care unit. He is currently awake and alert in no acute distress. He denies any chest pain, palpitations lightheadedness or dizziness. No shortness of breath, cough or congestion. He is maintaining good O2 saturations in the 90s on room air. He' s been hypertensive. No episodes of hypotension. Patient was reevaluated today on 03/22/2017, doing well, asymptomatic, no shortness of breath no chest pain, patient just came back from stress test, results of which are pending. Today I discussed with the patient and his family that considering the abnormality noted on the CT of the chest, I would prefer that the patient gets anticoagulation therapy in the form of Xarelto for the next 3 months and repeat the [address] of the chest in 3 months, and decide whether to continue for a long period of time on Xarelto or stop it at the time. My clinical index of suspicion for pulmonary embolism remains low, but cannot ignore the findings noted on the CT of the chest. VQ scan was low probability for pulmonary embolism. And his d-dimer is borderline elevated. Suggest starting the patient today on Xarelto and hopefully discharge the patient home in the next 24 hours. Objective - Vital Signs Vital signs: Vital Signs Temp 97.6 F 03/22/17 07:45 Pulse 78 03/22/17 08:51 Resp 16 03/22/17 08:33 BP 145/91 03/22/17 07:45 Pulse Ox 95 03/22/17 07:45 Intake & Output 03/21/17 03/22/17 03/22/17 18:59 06:59 18:59 Intake Total 540 1600 Balance 540 1600 Weight 108.1 kg 107.4 kg 107.048 kg Intake: IV 1600 Sodium Chloride 0.9% 1, 1600 000 ml @ 100 mls/hr IV . Q10H LUIS ANTONIO Rx#:[id number] Intake, IV Titration 0 Amount Heparin Sodium,Porcine/ 0 D5w Pmx 25,000 unit In Dextrose/Water 1 500ml. bag @ 18 UNITS/KG/HR 37. 55 mls/hr IV .[id number] [facility]IS ANTONIO Rx#:[id number] Oral 540 Other: Voiding Method Toilet Toilet Toilet # Voids 3 3 - Exam GENERAL EXAM: Alert, active, comfortable in no apparent distress. HEAD: Normocephalic. EYES: Normal reaction of pupils, equal size. NOSE: Clear with pink turbinates. THROAT: No erythema or exudates. NECK: No masses, no JVD. CHEST: No chest wall deformity. LUNGS: Equal air entry with no crackles, wheeze, rhonchi or dullness. CVS: S1 and S2 normal with no audible murmurs, regular rhythm. ABDOMEN: No hepatosplenomegaly, normal bowel sounds, no guarding or rigidity. SPINE: No scoliosis or deformity SKIN: No rashes CENTRAL NERVOUS SYSTEM: No focal deficits, tone is normal in all 4 extremities. Extremities: There is no significant peripheral edema. No clubbing, no cyanosis. Peripheral pulses are intact. - Labs CBC & Chem 7: 03/22/17 05:56 03/21/17 05:30 Labs: Abnormal Lab Results - Last 24 Hours (Table) 03/22/17 Range/Units 05:56 MCV 106.0 H (80.0-100.0) fL MCH 37.3 H (25.0-35.0) pg Plt Count 116 L (150-450) k/uL Lymphocytes # 0.7 L (1.0-4.8) k/uL Assessment and Plan Plan: #1 Atypical chest pain, no evidence of acute coronary syndrome, inconclusive CT angiogram for pulmonary embolism, VQ scan reveals low probability for pulmonary embolism. However cannot ignore the fact that the patient has abnormal CT angiogram showing possibly a filling defect in one of the segmental branches of the right upper lobe. Hence I would suggest that the patient gets treated with anticoagulation therapy for the next 3 months, and repeat CT angiogram of the chest in 3 months. #2 Dyspnea of unclear etiology, pulmonary embolism is not entirely ruled out. #3 Chronic and ongoing tobacco dependence. #4 Daily alcohol use. #5 History of marijuana use. #6 Hypertension. #7 Gastroesophageal reflux disease. #8 History of pancreatitis. #9 Anxiety/depression. #10 Chronic back pain. Recommendation: Suggest treating the patient with Xarelto for the next 3 months , follow-up with me on outpatient basis, we will arrange for repeat CT angiogram of the chest, and decide at that point on the length of treatment of anticoagulation therapy. At this point I believe the benefits oriented regulation therapy outweigh the risks. Time with Patient: Less than 30
[2017-03-22 11:51] VITALS: BP 122/81; PULSE 96; RESP 18; TEMP 96.9
--- NOTE | 2017-03-22 12:10 | ECHOS ---
DATE OF SERVICE: 03/22/2017 TYPE OF REPORT: Dobutamine Stress Echocardiogram INDICATION: Chest pain. BASELINE HEART RATE: 73 BASELINE BLOOD PRESSURE: 150/90 MAXIMUM HEART RATE: 148 MAXIMUM BLOOD PRESSURE: 202/56 85% MPHR: 149 100% MPHR: 175 METS: MAX STAGE REACHED: TOTAL EXERCISE TIME: Baseline EKG revealed normal sinus rhythm without significant ST-T changes. With Dobutamine administration, the heart rate went up from 73 to 148 beats per minute, which is 85% of predicted maximum. Blood pressure changed from 150/90 to 202/56. EKG did not reveal any ST segment changes to indicate ischemia. Patient did not have any significant symptoms. By EKG criteria, this considered as a unremarkable Dobutamine stress test. Baseline echo images revealed a normal wall motion and wall thickening of all segments. At peak exercise, there was good augmentation of left ventricular wall motion and wall thickening of all segments suggesting that there is no evidence of stress induced ischemia on this study. FINAL IMPRESSION: 1. By EKG criteria, this is an unremarkable Dobutamine stress test. 2. Normal Dobutamine stress echocardiogram. VANIA
[2017-03-22] MEDS ORDERED: WARFARIN 7.5 MG TAB PO SCH (13:43)
[2017-03-22] MEDS ORDERED: ENOXAPARIN 150 MG/ML SYRINGE SQ STA (13:43)
[2017-03-22] MEDS ORDERED: RIVAROXABAN 15 MG TAB PO STA (15:09)
[2017-03-22] MEDS: SODIUM CHLORIDE 0.9% 1,000 ML IV SCH (15:30)
--- NOTE | 2017-03-22 17:32 | P.DS ---
<Alireza Marti - Last Filed: 03/23/17 13:20> Providers Date of admission: 03/21/17 00:01 Attending physician: Alireza Marti Consults: 03/21/17 08:50 Consult Physician Routine Consulting Provider: Steven Sher Consult Reason/Comments: CHEST PAIN Do you want consulting provider notified?: Already Contacted 03/21/17 13:37 Consult Physician Routine Consulting Provider: Anne Vaughn Consult Reason/Comments: questinable PE Do you want consulting provider notified?: Yes Primary care physician: Bill Johnsonm[facility] Course: Attending note. Date of service-03/22/2017 This patient was seen and examined by me . Discussed the patient with my nurse practitioner Ms. Li. Breathing a bit better. Keen to go home. Per pulmonary to be treated for PE.. On examination: Lungs-decreased breath sounds, psych AO 3 Investigations: Assessment and plan: Acute small pulmonary embolism. Acute COPD exacerbation. Patient counseled extensively about smoking and alcohol. In presence of the family. At least 5 minutes was spent on smoke cessation counseling. Discharge home on Xarelto. Stress test was negative Patient Condition at Discharge: Stable Plan - Discharge Summary New Discharge Prescriptions: New Albuterol Inhaler [Ventolin Hfa Inhaler] 1 - 2 puff INHALATION Q6HR PRN #1 inhaler PRN Reason: Wheezing amLODIPine [Norvasc] 5 mg PO DAILY #30 tab Ipratropium [place] [Atrovent Hfa] 2 puff INHALATION QID #1 inhaler Nicotine 21Mg/24Hr Patch [Habitrol] 1 patch TRANSDERM DAILY #14 patch predniSONE 0 mg PO DIRECTED #10 tab Rivaroxaban [Xarelto] 20 mg PO DAILY #30 tab Rivaroxaban [Xarelto] 15 mg PO BID #42 tab Continue Esomeprazole Magnesium [NexIUM] 20 mg PO DAILY Atenolol 25 mg PO DAILY Discharge Medication List Atenolol 25 mg PO DAILY 03/20/17 [History] Esomeprazole Magnesium [NexIUM] 20 mg PO DAILY 03/20/17 [History] Albuterol Inhaler [Ventolin Hfa Inhaler] 1 - 2 puff INHALATION Q6HR PRN #1 inhaler 03/22/17 [Rx] Ipratropium [place] [Atrovent Hfa] 2 puff INHALATION QID #1 inhaler 03/22/17 [Rx ] Nicotine 21Mg/24Hr Patch [Habitrol] 1 patch TRANSDERM DAILY #14 patch 03/22/17 [ Rx] Rivaroxaban [Xarelto] 15 mg PO BID #42 tab 03/22/17 [Rx] Rivaroxaban [Xarelto] 20 mg PO DAILY #30 tab 03/22/17 [Rx] amLODIPine [Norvasc] 5 mg PO DAILY #30 tab 03/22/17 [Rx] predniSONE 0 mg PO DIRECTED #10 tab 03/22/17 [Rx] Follow up Appointment(s)/Referral(s): Anne Vaughn MD [STAFF PHYSICIAN] - 03/28/17 8:45 am Bill Massey MD [Primary Care Provider] - 03/24/17 2:15 pm Jero King MD [STAFF PHYSICIAN] - 03/29/17 2:30 pm Ambulatory/Diagnostic Orders: Prothrombin Time INR [LAB.AMB] Time Frame: 03/27/17, Location: Determined By Patient Patient Instructions/Handouts: Pulmonary Embolism (DC), Hypomagnesemia (DC) Activity/Diet/Wound Care/Special Instructions: XARELTO TO START TOMORROW 15 MG DAILY FOR 21 DAYS THEN THE PATIENT WILL TAKE 20 MG DAILY AT BEDTIME. Discharge Disposition: HOME SELF-CARE <Rika Li - Last Filed: 03/23/17 17:14> Providers Expected date of discharge: 03/22/17 Hospital Course: FINAL DIAGNOSES: -Acute chronic obstructive pulmonary disease exacerbation in a smoker. -Acute small pulmonary embolism. -Accelerated hypertension. -Chronic alcohol use, patient admits to drinking a pint or more every time he drinks -Chronic nicotine dependence. Patient is a smoker. -Anxiety and depression not otherwise specified. -Gastroesophageal reflux disease. -Obesity, body mass index 31.4. HOSPTIAL COURSE: 46-year-old patient who presented with 1 day of increasing shortness of breath. Imaging revealed questionable PE, patient had associated chest pressure and was admitted. IV heparin initiated. Pulmonology consulted. Nebulized bronchodilators, nebulized steroids, IV steroids initiated. Cardiology consulted stress test performed and was unremarkable Pulmonology recommends patient is treated with anticoagulation therapy for the next 3 months. And a repeat CT angiogram in the next 3 months as well to follow the progress. Long discussion had with patient regarding nicotine dependence and the importance for him to quit smoking. Additionally discussion was had regarding patient's alcohol use in the long-term effects on his health for using alcohol, continued smoking and continued marijuana use. Patient verbalized understanding and discussion was had in the presence of his and his mother. Today breathing is better no further episodes of shortness of breath, no chest pains, tolerating his diet, ambulatory in the room and samuel ways. Last BM 03/22/2017. Overall condition stabilized patient would like to go home. Patient will be sent home on Xarelto 15 mg twice daily for 21 days and then Xarelto 20 mg daily at bedtime. See detailed discharge summary for follow-up appointments and laboratory work that needs to be obtained. PHYSICAL EXAM: CARDIOVASCULAR: First and second sound noted no edema RESPIRATORY: Lung sounds diminished bilaterally, effort normal GI: Abdomen soft nontender liver and spleen not palpable PSYCHIATRY: Alert and oriented 3 mood and affect somber. Patient was seen and examined by nurse practitioner Rika Li in all elements of the case discussed with attending Dr. Marti DISPOSITION: Discharge home to the care of his and family
--- NOTE | 2017-03-23 07:53 | ECHOF ---
Referral Reason:chest pain MEASUREMENTS -------- HEIGHT: 185.4 cm WEIGHT: 108.0 kg BP: 180/110 IVSd: 1.4 cm (0.6 - 1.1) LVIDd: 4.3 cm (3.9 - 5.3) LVPWd: 1.4 cm (0.6 - 1.1) IVSs: 2.0 cm LVIDs: 3.5 cm LVPWs: 1.9 cm LAESV Index (A-L): 23.51 ml/m Ao Diam: 3.9 cm (2.0 - 3.7) AV Cusp: 1.9 cm (1.5 - 2.6) LA Diam: 1.6 cm (2.7 - 3.8) MV EXCURSION: 20.130 mm (> 18.000) MV EF SLOPE: 63 mm/s (70 - 150) MV E Jorge: 0.94 m/s MV DecT: 252 ms MV A Jorge: 0.88 m/s MV E/A Ratio: 1.06 RAP: 5.00 mmHg RVSP: 14.52 mmHg FINDINGS -------- Sinus rhythm. This was a technically adequate study. The left ventricular size is normal. Overall left ventricular systolic function is normal with, an EF between 55 - 60 %. The right ventricle is normal in size. Normal LA size by volume 22+/-6 ml/m2. The right atrium is normal in size. Aortic valve is trileaflet and is mildly thickened. There is no evidence of aortic regurgitation. There is no evidence of aortic stenosis. The mitral valve leaflets are mildly thickened. There is trace mitral regurgitation. Trace tricuspid regurgitation present. There is no evidence of pulmonary hypertension. The right ventricular systolic pressure, as measured by Doppler, is 14.52mmHg. The pulmonic valve was not well visualized. The aortic root size is normal. Normal inferior vena cava with normal inspiratory collapse consistent with estimated right atrial pressure of 5 mmHg. The pericardium is normal. There is no pericardial effusion. CONCLUSIONS -------- 1. Sinus rhythm. 2. There is no evidence of pulmonary hypertension. 3. The right ventricular systolic pressure, as measured by Doppler, is 14.52mmHg. 4. The pulmonic valve was not well visualized. 5. The aortic root size is normal. 6. There is no pericardial effusion. 7. This was a technically adequate study. 8. The left ventricular size is normal. 9. Overall left ventricular systolic function is normal with, an EF between 55 - 60 %. 10. Normal LA size by volume 22+/-6 ml/m2. 11. Aortic valve is trileaflet and is mildly thickened. 12. The mitral valve leaflets are mildly thickened. 13. There is trace mitral regurgitation. 14. Trace tricuspid regurgitation present. MEDICAL RESEARCHER: Santi Matute RDCS
== END 2017-03-22 16:05 | disposition home or self-care (01) | DRG 190 ==
LOC: EC 20:50 → 6SEL 03-21 00:01
PROVIDERS: ADMIT Hospitalist; ATTEND Hospitalist
PROC: 4A02XM4 Measurement of Cardiac Total Activity, External Approach (ICD-10-PCS; principal; 2017-03-22)
PROC: 3E073KZ Introduction of Other Diagnostic Substance into Coronary Artery, Percutaneous Approach (ICD-10-PCS; 2017-03-22)
PROC: B245ZZZ Ultrasonography of Left Heart (ICD-10-PCS; 2017-03-22)
DX: J44.1 Chronic obstructive pulmonary disease with (acute) exacerbation (principal); I26.99 Other pulmonary embolism without acute cor pulmonale; I10 Essential (primary) hypertension; F32.9 Major depressive disorder, single episode, unspecified; F41.9 Anxiety disorder, unspecified; E66.9 Obesity, unspecified; K21.9 Gastro-esophageal reflux disease without esophagitis; F12.90 Cannabis use, unspecified, uncomplicated; G89.29 Other chronic pain; M54.9 Dorsalgia, unspecified; R00.0 Tachycardia, unspecified; R61 Generalized hyperhidrosis; F10.10 Alcohol abuse, uncomplicated; R12 Heartburn; R53.1 Weakness; R09.02 Hypoxemia; E83.42 Hypomagnesemia; R20.2 Paresthesia of skin; R20.0 Anesthesia of skin; F17.200 Nicotine dependence, unspecified, uncomplicated; Z71.3 Dietary counseling and surveillance; Z71.41 Alcohol abuse counseling and surveillance of alcoholic; Z82.49 Family history of ischemic heart disease and other diseases of the circulatory system; Z87.19 Personal history of other diseases of the digestive system; Z79.899 Other long term (current) drug therapy; Z71.6 Tobacco abuse counseling; Y90.1 Blood alcohol level of 20-39 mg/100 ml
CPT/HCPCS: 36415; 71020; 71275; 78582; 80053; 80306; 80320; 81003; 82550; 82553; 83690; 83735; 83880; 84484; 85025; 85379; 85610; 85730; 93005; 93017; 93306; 93350; 94640; 94760; 96361; 96365; 96372; 96375; 99291